=== PATIENT | female | born 2005 | race Caucasian/White ===

== ENCOUNTER 2025-09-30 08:50 | Emergency (ER) | payer MEDICAID ==
[~2025-09-30] VITALS: Ht 170.2 cm; Wt 60.0 kg
[2025-09-30 09:03] VITALS: TEMP 98.2
[2025-09-30 10:13] VITALS: BP 131/79; PULSE 78; RESP 17; O2SAT 99
[2025-09-30] MEDS ORDERED: IBUP-1492 PO (11:32)
[2025-09-30] MEDS ORDERED: CORTSUSP AD (11:32)
== END 2025-09-30 11:38 | disposition home or self-care (01) ==
LOC: EMS 08:52
DX: H60.501 Unspecified acute noninfective otitis externa, right ear (principal)
CPT/HCPCS: 99283; Z7502